=== PATIENT | male | born 1965 ===

== ENCOUNTER 2020-07-02 10:19 | Emergency (ER) | payer SELFPAY ==
--- NOTE | 2020-07-02 10:39 | EDM.PDOC ---
ED HPI GENERAL MEDICAL PROBLEM - General Chief Complaint: General Stated Complaint: SPOKE W/NURSE Time Seen by Provider: 07/02/20 10:20 Source of Information: Reports: Patient History Limitations: Reports: No Limitations - History of Present Illness INITIAL COMMENTS - FREE TEXT/NARRATIVE: HISTORY AND PHYSICAL: History of present illness: Patient is a 55-year-old male who presents to the emergency room with his feblvsjb-wv-equ for a medical screening exam. Patient states they just traveled here from [place] and his gghpjtvw-cs-egh wanted him to be "checked out". Patient currently offers no complaints or concerns. He states that his grandson had completed the quarantine for COVID-19 and he was concerned that he may have been exposed although he is asymptomatic. The rvldglqz-uv-nms states he has not been sleeping well and wanted him evaluated. Patient denies any fever, chills, headache, change in vision, syncope or near syncope. Denies any chest pain, back pain, shortness of breath or cough. Denies any abdominal pain, nausea, vomiting, diarrhea, constipation or dysuria. Has not noted any blood in urine or stool. Patient has been eating and drinking appropriately. Patient has no thoughts of self-harm or harming others. Review of systems: As per history of present illness and below otherwise all systems reviewed and negative. Past medical history: As per history of present illness and as reviewed below otherwise noncontributory. Surgical history: As per history of present illness and as reviewed below otherwise noncontributory. Social history: See social history for further information Family history: As per history of present illness and as reviewed below otherwise noncontributory. Physical exam: General: Well developed and well nourished. Alert and orientated x 3. Nontoxic in appearance and in no acute distress. Vital signs are stable and have been reviewed by me. Nursing notes were reviewed. HEENT: Atraumatic, normocephalic, pupils equal and reactive bilaterally, negative for conjunctival pallor or scleral icterus, mucous membranes moist, TMs normal bilaterally, throat clear, neck supple, nontender, trachea midline. No drooling or trismus noted. No meningeal signs. No hot potato voice noted. Lungs: Clear to auscultation bilaterally. No wheezes, rales, or rhonchi. Chest nontender. Normal work of breathing, no accessory muscles used. Heart: S1S2, regular rate and rhythm without overt murmur, gallops, or rubs. No JVD. No peripheral edema Abdomen: Soft, nondistended, nontender. Normoactive bowel sounds. Negative for masses or costovertebral tenderness. Skin: Intact, warm, dry. No lesions or rashes noted. Hematologic: No petechiae or purpra. Mucosa appropriate color and normal nail bed color and refill. Extremities: Atraumatic, moves all extremities per self without difficulty or deficits, negative for cords or calf pain. Neurovascular unremarkable. Neuro: Awake, alert, oriented. Cranial nerves II through XII unremarkable. Cerebellum unremarkable. Motor and sensory unremarkable throughout. Exam nonfocal. Psychiatric: Mood and affect are appropriate. Normal thought process. Answering questions appropriately. Notes: *This patient was seen and evaluated during the 2019 SARS-CoV-2 novel coronavirus pandemic period. Community viral transmission is ongoing at time of this encounter and the emergency department is operating under pandemic response procedures. Patient's physical exam and vital signs are within normal limits. Patient and cveeahch-zs-kbo are aware that the emergency room does not do complete health screenings and nursing staff was able to make him an appointment for today at 230 so he can establish care and have lab work done if warranted. The mjcuveux-he-kit was asking about mental health resources as far as patient's history of anxiety and difficulty sleeping at night, we did give her information on [facility]. Patient is not a harm to himself or harm to others . The fbqwifay-wx-zue has no concern of these either. I have talked with the patient about today's findings, in addition to providing specific details for plan of care. Reassessment at the time of disposition demonstrates that the patient is in no acute distress. The patient is stable for discharge, counseling was provided and we discussed in great detail signs and symptoms that would prompt them to return to the Emergency Department. Medication, follow up and supportive care measures were reviewed and discussed. Voices understanding and is agreeable to plan of care. Denies any further questions or concerns at this time. Diagnostics: None Therapeutics: None Prescription: None Impression: Encounter for medical screening exam Plan: 1. Unfortunately we do not have a mental health provider in the ED. Your physical exam and vital signs are normal. I would like you to follow up at [facility], they have counselors/providers that can better evaluate and assist you with your mental health needs. They are located: [address] [place] [address] Phone#: [phone]. They take walk ins from 8am - 5pm daily. 2. We encourage you to follow up with your primary care provider to establish care for your medication refill and basic labs. We made you an appointment with DR. Robertson at [facility] (in our building) TODAY at 2:30pm. 3. If your symptoms should worsen, new symptoms develop or any of the signs and symptoms we discussed should arise please return to the emergency room or call 911 (if needed). Definitive disposition and diagnosis as appropriate pending reevaluation and review of above. - Related Data Allergies Allergy/AdvReac Type Severity Reaction Status Date / Time No Known Allergies Allergy Verified 07/02/20 10:31 Home Meds: Home Meds Anxiety Medication 07/02/20 [History] ED ROS GENERAL - Review of Systems Review Of Systems: Comprehensive ROS is negative, except as noted in HPI. ED EXAM, GENERAL - Physical Exam Exam: See Below (See dictation) Course - Vital Signs Last Recorded V/S: Last Vital Signs Temp 97.0 F 07/02/20 10:32 Pulse 90 07/02/20 10:32 Resp 18 07/02/20 10:32 BP 156/76 H 07/02/20 10:32 Pulse Ox 97 07/02/20 10:32 Departure - Departure Time of Disposition: 10:39 Disposition: Home, Self-Care 01 Clinical Impression: Encounter for medical screening examination - Discharge Information Instructions: Medical Screening Exam Referrals: PCP,None [Primary Care Provider] - Forms: ED Department Discharge Additional Instructions: The following information is given to patients seen in the emergency department who are being discharged to home. This information is to outline your options for follow-up care. We provide all patients seen in our emergency department with a follow-up referral. The need for follow-up, as well as the timing and circumstances, are variable depending upon the specifics of your emergency department visit. If you don't have a primary care physician on staff, we will provide you with a referral. We always advise you to contact your personal physician following an emergency department visit to inform them of the circumstance of the visit and for follow-up with them and/or the need for any referrals to a consulting specialist. The emergency department will also refer you to a specialist when appropriate. This referral assures that you have the opportunity for follow-up care with a specialist. All of these measure are taken in an effort to provide you with o ptimal care, which includes your follow-up. Under all circumstances we always encourage you to contact your private physician who remains a resource for coordinating your care. When calling for follow-up care, please make the office aware that this follow-up is from your recent emergency room visit. If for any reason you are refused follow-up, please contact the [facility] at and asked to speak to the emergency department charge nurse. [facility] [address] [place] [id number] [id number] Thank you for choosing the [facility] emergency department in [place] for your medical needs today. It was a pleasure caring for you. Today you were seen in the emergency department for medical screening exam. 1. Unfortunately we do not have a mental health provider in the ED. Your physical exam and vital signs are normal. I would like you to follow up at [facility], they have counselors/providers that can better evaluate and assist you with your mental health needs. They are located: [address] [place] [address] Phone#: [phone]. They take walk ins from 8am - 5pm daily. 2. We encourage you to follow up with your primary care provider to establish care for your medication refill and basic labs. We made you an appointment with DR. Robertson at [facility] (in our building) TODAY at 2:30pm. 3. If your symptoms should worsen, new symptoms develop or any of the signs and symptoms we discussed should arise please return to the emergency room or call 911 (if needed). Sepsis Event Note (ED) - Focused Exam Vital Signs: Vital Signs Temp Pulse Resp BP Pulse Ox 07/02/20 10:32 97.0 F 90 18 156/76 H 97
== END 2020-07-02 10:55 | disposition home or self-care (01) ==
LOC: MW.ED 10:19
DX: Z02.89 Encounter for other administrative examinations (principal)
CPT/HCPCS: 99282; 99283